=== PATIENT | female | born 1945 | race Caucasian/White ===

== ENCOUNTER 2021-02-26 23:56 | Inpatient (IN) | payer MEDICARE ==
[~2021-02-26] VITALS: Ht 170.2 cm; Wt 93.4 kg
[2021-02-27] MEDS ORDERED: PERCOCET 5-3251 EACH PO ×2 (01:00→01:31)
[2021-02-27] MEDS ORDERED: BENTYL 20MG TAB20 MG PO (03:17)
[2021-02-27] MEDS ORDERED: ALENDRONATE SOD70 MG PO (03:17)
[2021-02-27] MEDS ORDERED: COZAAR 50MG TAB50 MG PO (03:18)
[2021-02-27] MEDS ORDERED: CLOPIDOGREL75 MG PO (03:18)
[2021-02-27] MEDS ORDERED: LOPRESSOR 50 MG50 MG PO (03:18)
[2021-02-27] MEDS ORDERED: ATORVASTATIN CA40 MG PO (03:18)
[2021-02-27] MEDS ORDERED: MECLIZINE HCL25 MG PO (03:19)
[2021-02-27] MEDS ORDERED: ASPIRIN CHEWABL81 MG PO (03:19)
[2021-02-27] MEDS ORDERED: VITAMIN D3250 MCG PO (03:21)
[2021-02-27 09:17] LABS: HEMOGLOBIN 12.2 gm/dl (12.3-15.3); RED BLOOD COUNT 4.01 M/UL (4.00-5.10)
[2021-02-27 09:43] LABS: BUN/CREATININE RATIO 13 (0-10)
[2021-02-28 03:01] LABS: RED BLOOD COUNT 3.7 M/UL (4.00-5.10); WHITE BLOOD COUNT 7.7 K/UL (4.5-11.0)
[2021-02-28 03:22] LABS: BUN/CREATININE RATIO 12 (0-10)
[2021-03-02 04:03] LABS: HEMOGLOBIN 9.7 gm/dl (12.3-15.3); WHITE BLOOD COUNT 7.3 K/UL (4.5-11.0)
[2021-03-02 04:07] LABS: RED BLOOD COUNT 3.24 M/UL (4.00-5.10)
[2021-03-02 04:28] LABS: BUN/CREATININE RATIO 12 (0-10)
[2021-03-05 03:11] LABS: HEMOGLOBIN 9.8 gm/dl (12.3-15.3); RED BLOOD COUNT 3.28 M/UL (4.00-5.10); WHITE BLOOD COUNT 7.1 K/UL (4.5-11.0)
[2021-03-05 03:31] LABS: BUN/CREATININE RATIO 15 (0-10)
[2021-03-05 17:26] LABS: HEMOGLOBIN 11.7 gm/dl (12.3-15.3); RED BLOOD COUNT 3.97 M/UL (4.00-5.10); WHITE BLOOD COUNT 10.2 K/UL (4.5-11.0)
[2021-03-05 17:46] LABS: BUN/CREATININE RATIO 18 (0-10)
[2021-03-06 04:50] LABS: HEMOGLOBIN 10.5 gm/dl (12.3-15.3); RED BLOOD COUNT 3.71 M/UL (4.00-5.10); WHITE BLOOD COUNT 11.7 K/UL (4.5-11.0)
[2021-03-06 05:08] LABS: BUN/CREATININE RATIO 23 (0-10)
[2021-03-06] MEDS ORDERED: IBUPROFEN600 MG PO (13:05)
[2021-03-07] MEDS ORDERED: PERCOCET 5-3251 EACH PO (12:00)
== END 2021-03-07 13:59 | disposition home health service (06) | DRG 483 ==
LOC: ER1 23:56 → M/S 02-27 02:57 → CDU 02-27 02:57 → M/S 02-27 03:34
PROVIDERS: Internal Medicine; Orthopaedic Surgery; Physician Assistant; ADMIT Family Medicine
PROC: 0RRJ00Z Replacement of Right Shoulder Joint with Reverse Ball and Socket Synthetic Substitute, Open Approach (ICD-10-PCS; principal; 2021-03-05 13:00)
DX: S42.201A Unspecified fracture of upper end of right humerus, initial encounter for closed fracture (principal); E87.1 Hypo-osmolality and hyponatremia; W03.XXXA Other fall on same level due to collision with another person, initial encounter; Y93.89 Activity, other specified; Y92.009 Unspecified place in unspecified non-institutional (private) residence as the place of occurrence of the external cause; R29.6 Repeated falls; Z20.822 Contact with and (suspected) exposure to COVID-19; M81.0 Age-related osteoporosis without current pathological fracture; I10 Essential (primary) hypertension; Z79.899 Other long term (current) drug therapy; Z79.82 Long term (current) use of aspirin; Z86.73 Personal history of transient ischemic attack (TIA), and cerebral infarction without residual deficits; Z90.49 Acquired absence of other specified parts of digestive tract; Z88.1 Allergy status to other antibiotic agents; Z88.0 Allergy status to penicillin; Z79.01 Long term (current) use of anticoagulants; D64.9 Anemia, unspecified
CPT/HCPCS: 0240U; 36415; 36430; 70450; 71045; 73020; 73030; 73080; 73200; 73502; 73590; 80048; 80053; 82962; 85025; 85027; 86850; 86900; 86901; 86920; 90471; 90715; 93005; 94640; 94664; 94760; 96372; 96374; 96375; 96376; 97161; 97530; 99285; C1713; C1776; G0378; J0690; J1100; J1650; J2270; J2370; J2405; J2704; J2710; J2795; J3370; J7120; P9016; U0002